=== PATIENT | female | born 1960 | race Caucasian/White ===

== ENCOUNTER 2023-01-28 15:16 | Emergency (ER) | payer OTHER, SELFPAY ==
[2023-01-28 15:37] VITALS: BP 149/81; PULSE 64; RESP 18; TEMP 36.1; O2SAT 99; BMI 23.6
--- NOTE | 2023-01-28 15:37 | ED.GENADULT ---
HPI - General Adult General Chief complaint: Eye Problems Stated complaint: Left Eye Problems Time Seen by Provider: 01/28/23 15:42 Source: patient, RN notes reviewed and old records reviewed Mode of arrival: ambulatory Limitations: no limitations History of Present Illness HPI narrative: 63-year-old female presents for evaluation of left eye swelling. Patient woke up this morning with swelling to the left lower eyelid. She states it is very itchy and some mild pain She went to urgent care yesterday for swelling of the left hand and was prescribed prednisone for gout She has not yet started the medication Denies any drainage from the eye, redness to the eye itself or eye pain Related Data Allergies Allergy/AdvReac Type Severity Reaction Status Date / Time No Known Allergies Allergy Verified 01/28/23 15:37 Review of Systems Constitutional: Constitutional: Denies chills, Denies fever(s) and Denies headache(s) Eyes: Eyes: Reports irritation and Reports itchy eyes ENT: Denies headache(s) Integumentary/Breasts: Skin/Breast: Reports erythema Neurologic: Denies headache(s) Allergic/Immunologic: Allergic/Immunologic: Reports itchy eyes Physical Exam ED Vital Signs: Vital Signs - 24 hr 01/28/23 15:37 Temperature 96.9 F Pulse Rate 64 Respiratory Rate 18 Blood Pressure 149/81 H Pulse Oximetry 99 Oxygen Delivery Method Room Air BMI result Body Mass Index 23.6 Const General: healthy appearing, comfortable, no acute distress, alert and awake Nutritional Appearance: well nourished Orientation/consciousness: patient oriented x3 HENMT Head: Yes normocephalic and Yes atraumatic Eyes Periorbital: periorbital findings abnormal (Mild edema with faint erythema to the left inferior eyelid and face) Eyelids: Yes eyelids normal Conjunctivae: conjunctivae normal Sclerae: sclerae normal Corneas: corneas normal Pupils: Equal, round and reactive pupils present EOM: EOMs intact bilaterally Neck Neck: Yes full ROM Resp Effort & Inspection: normal respiratory effort, able to speak in complete sentences and not labored Skin General skin exam: elasticity normal Neuro General: patient oriented x3 Cranial nerves: Yes CN's II-XII intact bilaterally, Yes Equal, round and reactive pupils present and Yes Bilaterally intact EOM present Cognition (Neuro): normal cognition Medical Decision Making Medical Decision Making MDM Narrative: 63-year-old female presents for evaluation of a rash just below her left eye. The eye itself has no objective findings on exam. She reports that she is able to see of the eye there is no blurriness. There has been no trauma to the eye or face. The patient appears to have a dermatitis the skin which will be treated with prednisone she was prescribed yesterday and Benadryl. Return precautions were given Differential Diagnosis Dermatitis Atopic dermatitis Cellulitis Blepharitis Acute rash Insect bite Discharge Plan Discharge Clinical Impression: Dermatitis of face Patient Disposition: Home, Self-Care Instructions: Dermatitis (ED) Additional Instructions: Take the prednisone as prescribed yesterday. You should also use warm compresses to the swollen area You may take Benadryl 25 mg every 4-6 hours as needed for itching and rash Return for new or worsening symptoms Interventions: ED Discharge Assessment Last Done: 01/28/23 15:42
== END 2023-01-28 15:52 | disposition home or self-care (01) ==
PROVIDERS: Emergency Provider Emergency Medicine Emergency Medical Services
DX: L30.8 Other specified dermatitis (principal); H01.9 Unspecified inflammation of eyelid
CPT/HCPCS: 99282